=== PATIENT | male | born 1960 | race African-American/Black ===

== ENCOUNTER 2018-05-17 14:29 | Emergency (ER) | payer MEDICARE ==
--- NOTE | 2018-05-17 14:36 | ED Physician Documentation ---
General Adult - HISTORIAN Historian: patient - HPI Stated Complaint: nausea/vomiting Chief Complaint: General Adult Onset: hours Timing: still present Severity: moderate Further Comments: yes (Pt is a 57 yo male with abd pain. Pt has hx pancreatitis and gastritis. Pain on the L side of abd. Sx started last night. Pt has had n/v. Loose bm this am. Feeling of incomplete evacuation. Pt has had cholecystectomy years ago. Pt states he ate some chicken at a truck stop last evening and wonders if it caused his n/v. Pt has had frequent episodes of co litis.) - ROS CONST: no problems EYES/ENT: none CVS/RESP: none GI/: abdominal pain, vomiting, nausea MS/SKIN/LYMPH: none - PAST HX Past History: other (pancreatitis, gastritis) Surgeries/Procedures: cholecystectomy Allergies/Adverse Reactions: Allergies Allergy/AdvReac Type Severity Reaction Status Date / Time No Known Allergies Allergy Verified 05/17/18 14:44 Home Medications: Ambulatory Orders Medication Instructions Recorded Unobtainable 05/17/18 - SOCIAL HX Smoking History: cigarettes - FAMILY HX Family History: No - REVIEWED ASSESSMENTS Nursing Assessment Reviewed: Yes Vitals Reviewed: Yes Progress - Progress Progress: NS 1 L IVF Zofran 4 mg IV Phenergan 25 mg IV (in IVF) Toradol 30 mg IV Cipro 400 mg IV [facility] on bed hold transfer to [facility]. Dr. Mariano General Adult Physical Exam - PHYSICAL EXAM GENERAL APPEARANCE: moderate distress EENT: pharynx normal NECK: normal inspection, supple RESPIRATORY: no resp distress, chest non-tender, breath sounds normal CVS: reg rate & rhythm, heart sounds normal ABDOMEN: soft, tenderness (L sided abd tenderness, moderate), decreased BS BACK: normal inspection, CVA tenderness (L) SKIN: warm/dry, normal color EXTREMITIES: non-tender, normal range of motion, no evidence of injury, no edema NEURO: oriented X3, motor nml, sensation nml Discharge Clincal Impression: abd pain, acute colitis Nausea & vomiting Qualifiers: Vomiting type: unspecified Vomiting Intractability: unspecified Qualified Code(s): R11.2 - Nausea with vomiting, unspecified Referrals: Primary Doctor,No [Primary Care Provider] - 2 Days Condition: Stable Disposition: 02 XFER [facility] Decision to Admit: NO Decision Time: 17:48
[2018-05-17] MEDS: 0.9 % SODIUM CHLORIDE 1,000 ML IV ONE (14:50)
[2018-05-17] MEDS: ONDANSETRON HCL/PF 4 MG/ 2ML VIAL IVP ONE (14:50)
[2018-05-17] MEDS: ONDANSETRON HCL 4 MG TAB.RAPDIS PO ONE (15:02)
[2018-05-17] MEDS: KETOROLAC TROMETHAMINE 30 MG/1ML VIAL IVP ONE (15:10)
[2018-05-17 15:13] LABS: BASOPHILS % 0.4 (0.0-1.5); EOSINOPHILS % 1.4 % (0.0-6.8); MEAN CORPUSCULAR HEMOGLOBIN 28.9 pg (28.0-34.0); MONOCYTES % 6.6 % (0.0-11.0)
[2018-05-17 15:14] LABS: NEUTROPHILS # 3.2 # k/uL (1.4-7.7)
[2018-05-17 15:22] LABS: eGFR (Non-African) > 60
--- NOTE | 2018-05-17 15:33 | Diagnostic Imaging Report ---
JOHN IBRAHIM [facility] [address] [facility] [address] [place], [place]. [address] Report Submission Date: May 17, 2018 3:29:32 PM REMELT WORKER Patient Study Name: CAROLYN ASCENCIO Date: May 17, 2018 2:53:10 PM REMELT WORKER Modality Type: DX Gender: M Description: ABDOMEN : 64 Institution: [facility] Physician: JOHN IBRAHIM 1 view of the abdomen History: 57/M ABDOMEN PAIN, DECREASED/ABSENT BOWEL SOUNDS PT STATES SUDDEN ONSET PAIN LAST NIGHT, Hx OF CHOLECYSTECTOMY AND CHRONIC PANCREATITIS No prior comparison studies Surgical clips are seen in the upper abdomen. Relative paucity of bowel gas in the upper and mid abdomen. Few gas filled bowel loops are seen in the pelvis. Central opacity in the upper abdomen. Stomach appears displaced to the left. Supine study is limited for free intraperitoneal air evaluation. Degenerative changes of the thoracolumbar spine Impression: 1. Relative paucity of bowel gas in the upper and mid abdomen due to central opacity. Cross-sectional imaging may be done. Electronically signed on May 17, 2018 3:29:32 PM REMELT WORKER by: Daphne CAN
[2018-05-17] MEDS: FAMOTIDINE/PF 20 MG/2 ML VIAL IVP ONE (15:40)
[2018-05-17] MEDS: PROMETHAZINE HCL 25 MG in 0.9 % SODIUM CHLORIDE 50 ML IV ONE (16:28)
[2018-05-17] MEDS: PROMETHAZINE HCL 25 MG/ML VIAL ONE (16:31)
--- NOTE | 2018-05-17 17:33 | Diagnostic Imaging Report ---
JOHN IBRAHIM [facility] [address] [facility] [address] [place], [place]. [address] Report Submission Date: May 17, 2018 4:51:22 PM CAMERA REPAIR TECHNICIAN Patient Study Name: CAROLYN ASCENCIO Date: May 17, 2018 3:49:02 PM CAMERA REPAIR TECHNICIAN Modality Type: CT Gender: M Description: CT ABD PELVIS W/ CON : 64 Institution: [facility] Physician: JOHN IBRAHIM CT Abdomen/pelvis with contrast History: SUDDEN ONSET LLQ PAIN WITH NAUSEA AND VOMITING SINCE LAST NIGHT. HX OF CHOLECYSTECTOMY AND CHRONIC PANCREATITIS. 95 ML OMNI 350 IV CONTRAST ONLY PER ORDER DUE TO VOMITING No comparison studies Clear lung bases. No free intraperitoneal air. Lower lumbar spine degenerative changes The liver spleen, adrenal glands, pancreas are within normal limits. Post cholecystectomy No hydronephrosis, small bowel loops are fluid-filled, wall thickening of the colon, appendix is within normal limits. Impression: 1. Diffuse wall thickening of the entire colon with fluid-filled loops of small bowel throughout the abdomen and pelvis suggestive of enterocolitis. Recommend followup to resolution 2. Post cholecystectomy. Normal appendix. Gastric wall thickening likely gastritis Electronically signed on May 17, 2018 4:51:22 PM CAMERA REPAIR TECHNICIAN by: Daphne CAN
[2018-05-17] MEDS: CIPROFLOXACIN/D5W 400 MG in PREMIX BAG 1 BAG IV ONE (17:36)
[2018-05-17] MEDS: CIPROFLOXACIN/D5W 200 ML IV ONE (17:37)
[2018-05-17] MEDS: HYDROmorphone HCL/PF 2 MG/ML DISP.SYRIN ONE (18:05)
[2018-05-17] MEDS: HYDROmorphone HCL/PF 1 MG/ML DISP.SYRIN IVP ONE (18:05)
[2018-05-17 18:34] VITALS: BP 146/98
[2018-05-18 07:07] LABS: CANNABINOIDS NON NEGATIVE ng/mL (< 50); METHYLENEDIOXYMETHAMPHETAMINE NEGATIVE ng/mL (<500)
[2018-05-18 07:08] LABS: APPEARANCE,URINE CLEAR (CLEAR); COLOR,URINE YELLOW (YELLOW); OCCULT BLOOD,URINE TRACE-INTACT (NEGATIVE); UROBILINOGEN URINE 0.2 Eu (0.2-1.0)
== END 2018-05-17 18:30 | disposition short-term general hospital (02) ==
LOC: ED 14:29
DX: R10.9 Unspecified abdominal pain (principal); K52.9 Noninfective gastroenteritis and colitis, unspecified; R11.2 Nausea with vomiting, unspecified
CPT/HCPCS: 74018; 74177; 80053; 81002; 83690; 85025; G0481; J0744; J1170; J1885; J2405; J2550; J7030; 80377; 96365; 96367; 96375; 99285; Q9967; S0028; S1016